=== PATIENT | female | born 1985 | race Caucasian/White ===

== ENCOUNTER → 2020-02-04 08:53 | Outpatient (CLI) | payer MEDICAID, SELFPAY ==
--- NOTE | 2020-02-04 08:58 | NM_ITS ---
CLINICAL: 34-year-old female with reported history of clinical hyperthyroidism. I-123 THYROID UPTAKE and SCAN COMPARISON: None available FINDINGS: The patient was administered a 306 uCi I-123 capsule by mouth. The 4-hour I-123 radioactive iodine thyroidal uptake was calculated to be 44.9 % (normal 5 to 25 %). The 24-hour I-123 radioactive iodine thyroidal uptake was calculated to be 70.9 % (normal 5 to 40 %). The I-123 thyroid scan demonstrates homogeneous radiopharmaceutical concentration throughout both lobes of a U -shaped thyroid gland. There are no colloidal parenchymal hypofunctioning-cold nodules noted in either lobe of the thyroid gland. NM/Thyroid Uptake Single or Mult IMPRESSION: 1. ABNORMAL, ELEVATED 4- and 24-hour I-123 radioactive iodine thyroidal uptakes. 2. The I-123 thyroid scan in conjunction with the calculated iodine uptake values is consistent with the presence of a diffuse toxic goiter. Electronically Signed: Max Machado DO at 22:19 EDT Tel , Service support ,
== END ==
PROVIDERS: PCP Nurse Practitioner Family; Referring Provider Internal Medicine Endocrinology, Diabetes & Metabolism; Visit Provider Internal Medicine Endocrinology, Diabetes & Metabolism
DX: E05.00 Thyrotoxicosis with diffuse goiter without thyrotoxic crisis or storm (principal)
CPT/HCPCS: 78012; A9516

== ENCOUNTER 2020-04-09 09:52 | Observation (INO) | payer MEDICAID, SELFPAY ==
--- NOTE | 2020-04-07 08:21 | EKG12_ITS ---
Test Reason : PRE OP Blood Pressure : / mmHG Vent. Rate : 046 BPM Atrial Rate : 046 BPM P-R Int : 166 ms QRS Dur : 090 ms QT Int : 440 ms P-R-T Axes : 064 010 034 degrees QTc Int : 385 ms Sinus bradycardia with sinus arrhythmia Otherwise normal ECG Confirmed by PHU LEA ([id number]), clinical editor TRAVIS GALLARDO ([id number]) on 04/09/2020 2:41:08 PM Referred By: Senthil Alves Confirmed By:PHU LEA
[2020-04-07 08:41] LABS: Hematocrit 42.6 % (37-47); Hemoglobin 13.8 g/dL (12.0-15.0); Mean Corp Hgb Conc 32.4 g/dL (32-36); Mean Corpuscular Hgb 28.4 pg (27.0-32.0); Mean Corpuscular Volume 87.7 fL (81-99); Mean Platelet Vol. 9.1 fl (6.2-12.0); Platelet Count 183 K/mm3 (150-450); RBC Distribution Width CV 13.6 % (11.6-14.6); RBC Distribution Width SD 43.8 fl (35.1-43.9); Red Blood Count 4.86 M/mm3 (4.2-5.4); White Blood Count 7.8 K/mm3 (4.4-11.0)
[2020-04-07 09:11] LABS: Anion Gap 3 (5-15); BUN 12 mg/dL (7-18); Calcium,Total 8.7 mg/dL (8.5-10.1); Chloride 110 mmol/L (98-107); Creatinine, Serum 0.86 mg/dL (0.55-1.02); EST Glomerular Filtration Rate 80 mL/min (>60); Est Glom Filt Rate - Afr Amer 96 mL/min (>60); Glucose 102 mg/dL (74-106); Potassium 4.1 mmol/L (3.5-5.1); Sodium Level 142 mmol/L (136-145); Thyroid Stim Hormone (TSH) < 0.01 uIU/mL (0.358-3.74)
[2020-04-09] VITALS (11 sets, daily range): BP systolic 105–134; BP diastolic 48–71; PULSE 41–62; RESP 15–18; TEMP 36–37.3; O2SAT 95–100; BMI 36.2
--- NOTE | 2020-04-09 | IMM_PTH ---
PATIENT: KWESI MENDOZA LOC: MS3 U#:[id number] AGE/SX: 34/F ROOM: MS313 RE04/09/[address]: Dr. Senthil Alves MD : 1985 BED: 1 DIS: 04/10/2020 SPEC #: [id number] RECD: 04/13/20 12:53 STATUS: HILL REQ #: [id number] RENAY: 04/09/20 00:[address]: Senthil Alves DEPT: IMMUNOHISTOCHEMISTRY RECD BY: Maria Esther Patrick ENTERED: 04/13/20 12:54 SP TYPE: IMMUNO OTHR DR: Mariah Eller, COTTON TIER-C Tissues: Thyroid gland, NOS Procedures: CK19 (initial) CD56 (add) GAL-3 (add) HBME (add) PHYSICIAN & INSTITUTION [place] [id number] SPECIMEN INFORMATION: Tissue Source: Total thyroid gland Clinical Info: Grave's disease Specimen Number: [id number] #10 CPT code: 02599, 63698 x3 METHODOLOGY: Deparaffinized sections of prefer/formalin-fixed tissue or PAP/DQ stained slides are incubated with monoclonal/polyclonal antibodies/oligonucleotide probes. Localization is made via biotin free immunoperoxidase method. Appropriate controls are performed and reacted as expected. Results on target cell population are indicated in the following table: RESULTS: ANTIBODY / CLONE RESULT Block 10 CK19 (A53-B/A2.26) negative HBME1 (HBME-1) negative GAL3 (9C4) negative CD56 (123C3.D5) positive These tests were developed and their performance characteristics determined by [facility]. They may not have been cleared or approved by the U.S. Food and Drug Administration. The FDA has determined that such clearance or approval is not necessary. The above immunohistochemical/dualISH markers are ordered and reviewed by the Pathologist. INTERPRETATION: Thyroid, total thyroidectomy: Benign colloid nodule. AM:terri 04/14/20
[2020-04-09 06:35] LABS: Internal QC Validated? YES +Cl - CLEAR BKGD; Pregnancy, Urine Negative Negative
[2020-04-09] MEDS: Lactated Ringers 1,000 ML 100 ML IV ×3 (06:46→17:49)
--- NOTE | 2020-04-09 07:30 | THYROID_PTH ---
PATIENT: KWESI MENDOZA LOC: MS3 U#:[id number] AGE/SX: 34/F ROOM: MS313 RE04/09/[address]: Dr. Senthil Alves MD : 1985 BED: 1 DIS: 04/10/2020 SPEC #: [id number] RECD: 04/09/20 09:45 STATUS: HILL REYo #: [id number] RENAY: 04/09/20 07:[address]: Senthil Alves DEPT: SURGICAL PATHOLOGY RECD BY: Alex Pennington ENTERED: 04/09/20 10:28 SP TYPE: THYROID OTHR DR: PEDRO Baugh Tissues: Thyroid gland, NOS Procedures: Surgery Specimen Level V HEADER OPERATION: Thyroidectomy PRE-OP DIAGNOSIS: Grave's disease TISSUE SUBMITTED: Total thyroid gland MICROSCOPIC DIAGNOSIS Thyroid, total thyroidectomy: Colloid nodules with focal degenerative change. Chronic follicular thyroiditis, mild. Benign parathyroid tissue. See comment. AM:terri 04/13/20 COMMENT Immunohistochemistry ([id number]) supports the above diagnosis. Case has been reviewed in consultation with Dr. Hernandez who concurs with the above diagnosis. IDC:[email or web address] MICROSCOPIC DESCRIPTION Slides are reviewed. GROSS DESCRIPTION Received in fixative is one container labeled with the patient's name and designated total thyroid gland. The specimen consists of a total thyroidectomy specimen weighing 30 gm. The right lobe measures 5.5 x 3 x 3 cm and left lobe measures 5 x 3 x 2.5 cm and the isthmus measures 1 x 0.3 cm. The specimen is inked as follows: posterior surface right lobe, left lobe and isthmus - black, anterior lateral surface right lobe - blue, anterior lateral surface left lobe - green, anterior surface isthmus - yellow. Serial sections of?the right lobe and isthmus do not reveal any obvious mass lesion. Sections of the left lobe reveal a corbin, round nodule in the superior portion of lobe measuring 0.4 cm in greatest dimension. Print Support Specialist sections are submitted in 15 cassettes as follows: 1 - isthmus, entirely submitted, 2-8 - right lobe (2?containing the most superior portion and 8 containing the most inferior portion), 9-15 - left lobe (9?containing the most superior portion including entire nodule and 15 containing the most inferior portion). / KHALIF:terri 04/12/20 TC:1 CPT: 56921
--- NOTE | 2020-04-09 09:45 | DCINST_ITS ---
You will use the following diet at home:: Regular Discharge Activity: Return to Normal Activity, May not drive while taking narcotic pain medications. Call your doctor if your incision/area has: Sudden Increased Bleeding, Increased Pain/ Swelling, Swelling at the incision site Call your doctor if you observe: Fever of 101 or Higher, Uncontrolled pain Cleanse incision/area with: Do not get Incision Wet Allergies/Adverse Reactions: Allergies No Known Allergies Allergy (Verified 04/09/20 06:35) Medications to take at Discharge Ergocalciferol [Vitamin D] 50,000 unit PO MO 04/02/20 Methimazole [Tapazole] 20 mg PO DAILY 04/02/20 Multivitamin 1 ea PO DAILY 04/02/20 Propranolol HCl [Propranolol HCl ER] 60 mg PO DAILY 04/02/20 Primary Care Physician: Mariah Eller NP-C [Primary Care Provider] - Test Results: Test results from this visit will be discussed in further detail at your follow- up appointment, if applicable. Please Follow Up With: Senthil Alves MD When: 2 WEEKS
--- NOTE | 2020-04-09 09:46 | OP.PCM_ITS ---
Problem List (1) Graves disease Status: Chronic (2) Goiter Status: Chronic Report of Operation Date of Procedure: 04/09/20 Pre-Operative Diagnosis: Graves disease, goiter Post-Operative Diagnosis: Same Surgery/Procedure Performed:: Total thyroidectomy with laryngeal nerve monitoring Description of Surgical Findings:: Lidia is a 34-year-old female with history of Graves' disease. Although she was offered radioiodine ablation she preferred surgical treatment for control of her hyperthyroidism. The risks of coronavirus exposure in this operative setting was discussed and she is agreeable to accept this risk in exchange for treatment of her underlying disease. The risks, alternatives, potential complications, and benefits were discussed at length and any questions answered to the patient and/or caregiver's satisfaction. Witnessed informed consent was obtained in the office, and the patient and/or caregiver was agreeable to proceed. Preoperative treatment with methimazole and Lugol's solution to encourage a euthyroid state with normalization of her T4 was completed preoperatively. Procedure went as follows: The patient was identified in the preoperative holding and brought to the operating room, placed under general anesthesia and intubated with a neuromonitoring tube. The grounding electrodes were then placed on the chest and confirmed to be operational in accordance with the director of education and training's directions to allow for recurrent laryngeal nerve monitoring. The neck was then prepped and draped in usual sterile fashion and the planned skin incision was marked 2 finger breadths above the sternal notch with a marking pen. The incisional line was then injected with 1% lidocaine with 100,000 epinephrine for a total of 6 mL. After allowing for vasoconstriction, a 15 blade scalpel was used to make an incision 8 cm in length through the skin and subcutaneous tissues and platysma. A subplatysmal flap was then elevated superiorly and inferiorly to allow for placement of the self-retaining thyroid retractor. The strap muscles were then divided in the midline and beginning on the left side the thyroid lobe dissected in a sub-capsular fashion. The inferior, middle, and superior thyroid vessels were individually clamped and ligated with a combination of 3-0 silk sutures and vascular clips. The parathyroid glands were identified along the inferior vascular pedicle and preserved. The recurrent laryngeal nerve was also identified and followed to its nerve entry point and the thyroid gland dissected free of its attachments to the trachea at Broyle's ligament. This was then transected at the isthmus and sent for pathologic evaluation. Attention was then turned to the contralateral side where similar dissection was carried out and completed, again with preservation of the laryngeal nerve and parathyroid glands. The wound bed was then irrigated saline solution and examined for sites of bleeding. No significant bleeding was encountered and #7 flat drains were then placed into each tracheoesophageal groove and brought out through separate stab incisions in the neck and secured with 3-0 silk sutures. The strap muscles were then re-approximated in the midline with a running 3-0 Vicryl suture followed by interrupted 3-0 Vicryl sutures to close the platysma and subcutaneous tissues. A 5-0 Monocryl was then used to close the skin followed by Steri-Strips completing the procedure. The patient was then returned to anesthesia, revived and extubated having tolerated the procedure well. Type of Anesthesia:: General Anesthesiologist: Ricardo Salguero Special Medications: none Specimen's removed: total thyroid Drains: 2 #7 flat YUDY Estimated Blood Loss (mL): 20 mL Fluids Replaced: 1200 mL Grafts/Implants Used: none - Admit VTE Documentation VTE Present on Admission: No VTE Mechan Device Prophylaxis: SCD's VTE Pharm Prophylaxis ordered?: No
[2020-04-09 11:06] LABS: Calcium,Total 8.4 mg/dL (8.5-10.1)
[2020-04-09] MEDS: Ondansetron ODT 4 MG Tablet PO (11:36)
[2020-04-09] MEDS: Ibuprofen 200 MG Tablet 400 MG PO ×2 (11:37→17:48)
[2020-04-09] MEDS: Multivitamins,Therapeutic Tablet 1 TABLET PO (17:48)
--- NOTE | 2020-04-09 17:56 | NURSING ---
Dangled on edge of bed. Walked to bathroom and then to chair. sitting in chair at this time.
[2020-04-09] MEDS: HYDROcodone Bitartrate/Apap 5/325 Tablet PO (20:31)
[2020-04-09] MEDS: 0.9% Saline Lock 10 ML Syringe IV (21:46)
[2020-04-10 02:35] VITALS: BP 100/53; PULSE 63; RESP 16; TEMP 36.3; O2SAT 96
[2020-04-10] MEDS: Ibuprofen 400 MG Tablet PO ×2 (02:43→08:28)
[2020-04-10] MEDS: Levothyroxine 125 MCG Tablet PO (06:09)
[2020-04-10 07:45] LABS: Calcium,Total 8.2 mg/dL (8.5-10.1)
[2020-04-10] MEDS: Multivitamins,Therapeutic Tablet 1 TABLET PO (08:29)
[2020-04-10 08:35] VITALS: BP 117/76; PULSE 50; RESP 16; TEMP 36.8; O2SAT 96
[2020-04-10 09:32] VITALS: PULSE 50
--- NOTE | 2020-04-10 09:40 | PCM.PN.SRG ---
Subjective: Patient reports she is doing well status post total thyroidectomy for Graves' disease. She denies any hoarseness, neck pain, or paresthesias. Objective: Patient is well-appearing at the bedside with normal voicing. [place] sign is negative. The neck incision is clean dry and intact with minimal serosanguineous discharge from the drains which were removed at the bedside. - Physical Exam Vitals/I&O's: Vital Signs Temp Pulse Resp BP Pulse Ox 98.3 F 50 L 16 117/76 96 04/10/20 08:35 04/10/20 09:32 04/10/20 08:35 04/10/20 08:35 04/10/20 08:35 Oxygen Flow Rate (L/min) 2 Oxygen Delivery Method Room Air Weight: 104.9 kg Body Mass Index (BMI) 36.2 Intake and Output for Last 24 Hours 04/08/20 04/09/20 04/10/20 23:59 23:59 23:59 Intake Total 2553.33 / 2553.33 200 / 200 Output Total 1866 / 1866 10 Balance 687.33 / 687.33 190 / 190 General: Alert, Oriented x3 HEENT: Atraumatic, PERRLA, EOMI Oral: Moist Mucosa Neck: Supple Lungs: Normal air movement Cardiovascular: Regular rate, Regular Rhythm Abdomen: Non Tender, Non-Distended Skin: No rashes, No breakdown Psych/Mental Status: Alert and oriented to time, place, person, mood and affect Laboratory Results 04/09/20 10:23: Calcium 8.4 L 04/10/20 06:55: Calcium 8.2 L Current Medications Acetaminophen (Tylenol) 650 mg PO Q4H PRN PRN PRN Reason: Pain Score 1-5/10 Hydrocodone Bitart/Acetaminophen ([place] 5mg-325mg) 1 tablet PO Q6H PRN PRN PRN Reason: Pain Score 6-10/10 Last Admin: 04/09/20 20:31 Dose: 1 tablet Documented by: Sodium Chloride () 250 mls @ 15 mls/hr IV .[id number] PRN PRN Reason: Saline Flush Sodium Chloride () 250 mls @ 15 mls/hr IV .[id number] PRN PRN Reason: Additional IVPB Infusion Ibuprofen (Motrin) 400 mg PO Q6H PRN PRN PRN Reason: Pain Score 4-10/10 Last Admin: 04/09/20 17:48 Dose: 400 mg Documented by: Ibuprofen (Motrin) 400 mg PO Q6H PRN PRN PRN Reason: Pain Score 4-10/10 Last Admin: 04/10/20 08:28 Dose: 400 mg Documented by: Levothyroxine Sodium (Synthroid) 125 mcg PO DAILY@0600 [facility] Last Admin: 04/10/20 06:09 Dose: 125 mcg Documented by: Multivitamins (Multivitamin) 1 tablet PO DAILYCM [facility] Last Admin: 04/10/20 08:29 Dose: 1 tablet Documented by: Ondansetron HCl (Zofran Odt) 4 mg PO Q6H PRN PRN PRN Reason: Nausea Last Admin: 04/09/20 11:36 Dose: 4 mg Documented by: Propranolol HCl (Inderal La) 60 mg PO DAILY [facility] Sodium Chloride () 10 - 40 ml IV UD PRN PRN Reason: SALINE FLUSH Last Admin: 04/09/20 21:46 Dose: 10 ml Documented by: Medical Necessity - Tobacco Use Smoking Status: Never smoker Assessment/Plan Patient is 1 day post total thyroidectomy. She has done very well overnight. Calcium has declined slightly since preop however she denies any symptoms of hypocalcemia. I have advised her of the signs of hypocalcemia with paresthesias muscle cramps and the treatment with oral Tums 4 times a day. She may also start a calcium supplementation like Caltrate D if desired. She has been slightly hypotensive during her stay and had previously been on propanolol for control of her hyperparathyroidism and reports that she did not take her morning dose this morning. Given this I suggested that she stop this medication at this time and does not appear to need to be weaned down from this additionally she will stop her methimazole. She was started on thyroid replacement hormone at 125 mcg with plan for testing a TSH in 6 to 8 weeks. Given that she is done well without active complaints we will plan for discharge this morning to home.
== END 2020-04-10 11:14 | disposition home or self-care (01) ==
LOC: MS3 04-12 09:33 → SDC 04-12 09:33
PROVIDERS: Anesthesiology; Admitting Provider Otolaryngology; PCP Nurse Practitioner Family; Referring Provider Otolaryngology; Visit Provider Otolaryngology
PROC: (CPT 60240; principal; 2020-04-09 07:10)
DX: E05.00 Thyrotoxicosis with diffuse goiter without thyrotoxic crisis or storm (principal); Z11.59 Encounter for screening for other viral diseases; G47.30 Sleep apnea, unspecified; Z79.899 Other long term (current) drug therapy
CPT/HCPCS: 00320; 60240; 36415; 80048; 81025; 82310; 84436; 84443; 85027; 87635; 88307; 88341; 88342; 93005; 94799; 96360; 96361; 99218; J7120; A4216; G0378; G0379; J2405; U0003

== ENCOUNTER → 2020-05-07 14:59 | Outpatient (CLI) | payer MEDICAID, SELFPAY ==
[2020-04-09 11:06] VITALS: BMI 36.2
[2020-05-07 16:14] LABS: Calcium,Total 8.8 mg/dL (8.5-10.1); Thyroid Stim Hormone (TSH) 0.01 uIU/mL (0.358-3.74)
== END ==
PROVIDERS: PCP Nurse Practitioner Family; Referring Provider Otolaryngology; Visit Provider Otolaryngology
DX: E05.00 Thyrotoxicosis with diffuse goiter without thyrotoxic crisis or storm (principal)
CPT/HCPCS: 36415; 82310; 84443